=== PATIENT | female | born 1980 | race Caucasian/White ===

== ENCOUNTER 2020-01-03 11:54 | Emergency (ER) | payer SELFPAY ==
--- OUTSIDE RECORDS SUMMARY | 2020-01-03 11:57 | XMS REPORT | Summary of Care ---
:1980 Author Organization [facility] Address [address] [place] [address]- phone Encounter HQ Alesia(GORDO) [id number] Date(s): 11/07/19 - 11/07/19 [facility] [address], [place] [address]- [phone] Discharge Disposition: Home or Self Care Attending Physician: Ryan Bran MD Referring Physician: Ryan Bran MD Vital Signs Most recent to oldest [Reference Range]: 1 Height 157.48 cm (11/07/19 1:59 PM) Temperature Oral [96.4-99.1 DegF] 98.1 DegF (11/07/19 1:59 PM) Blood Pressure [90-140/60-90 mmHg] 121/73 mmHg (11/07/19 1:59 PM) Respiratory Rate [14-20 BRMIN] 16 BRMIN (11/07/19 1:59 PM) Peripheral Pulse Rate [60-100 bpm] 75 bpm (11/07/19 1:59 PM) Weight 110 kg (11/07/19 1:59 PM) Body Mass Index 44.35 m2 (11/07/19 1:59 PM) Problem List Condition Effective Dates Status Health Status Informant Renal cyst(Confirmed) Active Diabetes mellitus type II(Confirmed) Active HTN - Hypertension(Confirmed) Active Hyperlipidemia(Confirmed) Active Iron deficiency(Confirmed) Active Lumbar radiculopathy(Confirmed) Active Migraine(Confirmed) Active Paresthesia of right foot(Confirmed) Active Vertigo(Confirmed) Active Visual disturbance(Confirmed) Active Allergies, Adverse Reactions, Alerts No Known Medication Allergies Medications acetaminophen/butalbital/caffeine 300 mg-50 mg-40 mg oral capsule 1 cap, PO, Q4H, 0 Refill(s) Start Date: 11/07/19 Status: Orderedbaclofen 10 mg oral tablet 10 mg = 1 tab, PO, Bedtime, # 30 tab, 2 Refill(s), Pharmacy: [facility], 157.48, cm, 11/07/19 13:59:00 CDT, Height, 110, kg, 11/07/19 13:59:00 CDT, Weight Start Date: 11/07/19 Stop Date: 02/05/20 Status: Orderedfenofibrate 160 mg, PO, Daily, 0 Refill(s) Start Date: 11/07/19 Status: Orderedferrous sulfate 325 mg, PO, Daily, 0 Refill(s) Start Date: 11/07/19 Status: Orderedpropranolol 80 mg oral capsule, extended release 80 mg = 1 cap, PO, Daily, # 90 cap, 3 Refill(s), Pharmacy: [facility], 157.48, cm, 11/07/19 13:59:00 CDT, Height, 110, kg, 11/07/19 13:59:00 CDT, Weight Start Date: 11/07/19 Stop Date: 11/01/20 Status: Orderedrizatriptan 10 mg oral tablet 10 mg = 1 tab, PO, ONCE, PRN Headache, # 12 tab, 1 Refill(s), Pharmacy: [facility], 157.48, cm, 11/07/19 13:59:00 CDT, Height, 110, kg, 11/07/19 13:59:00 CDT, Weight Start Date: 11/07/19 Status: Orderedvenlafaxine 150 mg oral capsule, extended release 150 mg = 1 cap, PO, Daily, # 90 cap, 3 Refill(s), Pharmacy: [facility], 157.48, cm, 11/07/19 13:59:00 CDT, Height, 110, kg, 11/07/19 13:59:00 CDT, Weight Start Date: 11/07/19 Stop Date: 11/01/20 Status: Ordered Results No data available for this section Immunizations No data available for this section Procedures No data available for this section Social History Social History Type Response Smoking Status Never smoker; Exposure to To bacco Smoke Unable to obtain; Cigarette Smoking Last 365 Days Unable to obtain; Reg Smoking Cessation Counseling No entered on: 11/07/19 Assessment and Plan No data available for this section
--- OUTSIDE RECORDS SUMMARY | 2020-01-03 11:57 | XMS REPORT | Continuity of Care Document ---
:1980 Author Organization [facility] Care Team Providers Name Role Phone [facility] Unavailable Un available Problems Problem Status Onset Classification Date Comments Sourc e Date Reported Diabetes mellitus Active Problem 11/10/2019 [facility] type 2 (disorder) Ne uro Hypertensive Active Problem 11/10/2019 M[facility] r disorder, systemic N euro arterial (disorder) Lumbar Active Problem 11/10/2019 [facility] radiculopathy Neuro (disorder) Migraine Active Problem 11/10/2019 [facility] (disorder) Neuro Paresthesia of Active Problem 11/10/2019 Misc her foot (finding) Neuro Vertigo (finding) Active Problem 11/10/2019 [facility] Neuro Visual disturbance Active Problem 11/10/2019 [facility] (disorder) Neuro Cyst of kidney Active Problem 11/10/2019 Misc her (disorder) Neuro Hyperlipidemia Active Problem 11/10/2019 Misc her (disorder) Neuro Iron deficiency Active Problem 11/10/2019 Mis bryce (disorder) Neuro Medications Medication Details Route Status Patient Ordering Order Source Instructions Provider Date baclofen 10 mg 10 mg = 1 Active [facility] oral tablet tab, PO, 020 Neuro Bedtime, # 30 tab, 2 Refill(s), Pharmacy: [facility], 157.48, cm, 11/07/19 13:59:00 CDT, Height, 110, kg, 11/07/19 13:59:00 CDT, Weight propranolol 80 80 mg = 1 Active [facility]ischer mg oral capsule, cap, PO, 020 Neuro extended release Daily, # 90 cap, 3 Refill(s), Pharmacy: [facility], 157.48, cm, 11/07/19 13:59:00 CDT, Height, 110, kg, 11/07/19 13:59:00 CDT, Weight rizatriptan 10 10 mg = 1 Active [facility] mg oral tablet tab, PO, 020 Neuro ONCE, PRN Headache, # 12 tab, 1 Refill(s), Pharmacy: [facility], 157.48, cm, 11/07/19 13:59:00 CDT, Height, 110, kg, 11/07/19 13:59:00 CDT, Weight venlafaxine 150 150 mg = 1 Active Misch er mg oral capsule, cap, PO, 020 Neuro extended release Daily, # 90 cap, 3 Refill(s), Pharmacy: [facility], 157.48, cm, 11/07/19 13:59:00 CDT, Height, 110, kg, 11/07/19 13:59:00 CDT, Weight Fenofibrate 160 mg, PO, Active Mischer Daily, 0 020 Neuro Refill(s) ferrous sulfate 325 mg, PO, Active Misc her Daily, 0 020 Neuro Refill(s) Acetaminophen 1 cap, PO, Active Mischer 300 MG / Q4H, 0 020 Neuro butalbital 50 MG Refill(s) / Caffeine 40 MG Oral Capsule gabapentin 300 300 mg = 1 Active Mische r MG Oral Capsule cap, PO, 020 Neuro BID, # 60 cap, 3 Refill(s), Pharmacy: [facility] baclofen 10 mg 10 mg = 1 Active [facility]ischer oral tablet tab, PO, 020 Neuro Bedtime, # 30 tab, 2 Refill(s), Pharmacy: [facility] gabapentin 300 300 mg = 1 Active Mische r MG Oral Capsule cap, PO, 019 Neuro BID, # 60 cap, 3 Refill(s), Pharmacy: [facility] baclofen 10 mg 10 mg = 1 Active [facility] oral tablet tab, PO, 019 Neuro Bedtime, # 30 tab, 2 Refill(s), Pharmacy: [facility] 3 ML liraglutide 1.8 mg, Active [facility]ischer 6 MG/ML SUB-Q, 019 Neuro Prefilled Daily, # 9 Syringe mL, 1 [Victoza] Refill(s) 3 ML liraglutide SUB-Q, Inactive Mische r 6 MG/ML Daily, 0 019 Neuro Prefilled Refill(s) Syringe [Victoza] venlafaxine 150 150 mg = 1 Active Misch er mg oral capsule, cap, PO, 019 Neuro extended release Daily, # 90 cap, 3 Refill(s), Pharmacy: [facility] rizatriptan 10 10 mg = 1 Active [facility] mg oral tablet tab, PO, 019 Neuro ONCE, PRN Headache, # 12 tab, 1 Refill(s), Pharmacy: [facility] propranolol 80 80 mg = 1 Active [facility]ischer mg oral capsule, cap, PO, 019 Neuro extended release Daily, # 90 cap, 3 Refill(s), Pharmacy: [facility] baclofen 10 mg 10 mg = 1 Active Mischer oral tablet tab, PO, 019 Neuro Bedtime, # 30 tab, 2 Refill(s), Pharmacy: [facility] gabapentin 300 300 mg = 1 Active Mische r MG Oral Capsule cap, PO, 019 Neuro BID, # 60 cap, 3 Refill(s), Pharmacy: [facility] gabapentin 300 300 mg = 1 No Longer Misc her MG Oral Capsule cap, PO, Active 019 Neuro Bedtime, # 30 cap, 3 Refill(s), Pharmacy: [facility] Allergies, Adverse Reactions, Alerts Substance Category Reaction Severity Reaction Status Date Comments S ource type Reported No Known Assertion Drug Misch er Medication allergy Neuro Allergies Immunizations No Data Provided for This Section Results Order Name Results Value Reference Date Interpretation Comments Trinity rce Range ANEMIA Vitamin B12 Lvl 436 200 - 1100 10/12 Result Misch er STUDY /2018 Comment: Neuro FASTING:YE S
<br/ >FASTING: YES

Lab test performed by:
[facility] [[email or web address]] [facility]
[address]
[place] [address]
Naomi Kearns CHEM PANEL Alk Phos 100 33 - 115 10/12 Neuro CHEM PANEL Bili Total 0.3 0.2 - 1.2 10/12 Neuro CHEM PANEL ASPARTATE 13 10 - 30 10/12 Neuro CHEM PANEL ALANINE 19 6 - 29 10/12 [facility] E CHEM PANEL Glucose Lvl 135 65 - 99 10/12 Result Comment: Neuro
Fasting reference interval<b r/>
For someone without known diabetes, a glucose
value >125 mg/dL indicates that they may have
d iabetes and this should be confirmed with a
foll ow-up test.

Lab test performed by:
[facility]
[address]
[place] [address]
Naomi Kearns CHEM PANEL A/G Ratio 1.8 1.0 - 2.5 10/12 Neuro CHEM PANEL Globulin 2.8 1.9 - 3.7 10/12 Neuro CHEM PANEL Albumin Lvl 4.9 3.6 - 5.1 10/12 [facility] Neuro CHEM PANEL BUN 12 7 - 25 10/12 Neuro CHEM PANEL eGFR NON-AFR. 114 > OR = 60 10/12 [facility] [place]WAZ[place] mL/min/1. Neuro 3m2 CHEM PANEL Creatinine Lvl 0.60 0.50 - 10/12 [facility] 1. Neuro CHEM PANEL Chloride Lvl 101 98 - 110 10/12 Neuro CHEM PANEL Potassium Lvl 4.7 3.5 - 5.3 10/12 [facility] CHEM PANEL Total Protein 7.7 6.1 - 8.1 10[facility] Calcium Lvl 10.1 8.6 - 10.2 10/12 [facility] CO2 26 20 - 32 10/12 [facility] Neuro CHEM PANEL Sodium Lvl 136 135 - 146 10/12 [facility] Neuro CHEM PANEL B/C Ratio NOT 6 - 22 10/12cher APPLICABLE Neuro CHEM PANEL eGFR 132 > OR = 60 10/12 Mische r SWAZI mL/min/1. Neuro 3m2 HEMATOLOGY Basophils 0.8 10/12 Neuro HEMATOLOGY Neutrophils # 6036 1500 - 10/12 [facility] HEM[facility] Lymphocytes # 3420 850 - 3900 10/12 Misc her /2018 Neuro HEMATOLOGY Monocytes # 700 200 - 950 10/12 Neuro HEMATOLOGY Eosinophils # 62 15 - 500 10/12 [facility] Neuro HEMATOLOGY Basophils # 82 0 - 200 10/12 Neuro HEMATOLOGY Segs 58.6 10/12 Neuro HEMATOLOGY Monocytes 6.8 10/12cher Neuro HEMATOLOGY Eosinophils 0.6 10/12 Neuro HEMATOLOGY Lymphocytes 33.2 10/12 Neuro HEMATOLOGY WBC X 10x3 10.3 3.8 - 10.8 10/12 Result Comment: Neuro
Lab test performed by:
[facility]
[address]
[place] [address]
Naomi Kearns HEMATOLOGY RBC X 10x6 4.56 3.80 - 10/12 [facility] 5.10 Neuro HEMATOLOGY Hgb 10.8 11.7 - 10/12 [facility] 15.5 Neuro HEMATOLOGY Hct 34.0 35.0 - 10/12 [facility] 45.0 2019 Neuro HEMATOLOGY MCH 23.7 27.0 - 10/12 [facility] 33.0 Neuro HEMATOLOGY MCV 74.6 80.0 - 10/12 [facility] HEM[facility] RDW 15.4 11.0 - 10/12cher 15.0 Neuro HEMATOLOGY MCHC 31.8 32.0 - 10/12 [facility] 36.0 Neuro HEMATOLOGY MPV 10.6 7.5 - 12.5 10/12 Neuro HEMATOLOGY Platelet 453 140 - 400 10/12 Neuro HEMATOLOGY Sed Rate 25 < OR = 20 10/12 Result Mischer mm/hr Comment: Neuro
Lab test performed by:
[facility]
[address]
[place] [address]
Naomi Kearns Pathology Reports No Data Provided for This Section Diagnostic Reports No Data Provided for This Section Consultation Notes No Data Provided for This Section Discharge Summaries No Data Provided for This Section History and Physicals No Data Provided for This Section Vital Signs Vital Sign Value Date Comments Source Systolic (mm Hg) 121 11/07/2019 [facility] Benji ro Diastolic (mm Hg) 73 11/07/2019 [facility] Ne uro Heart Rate 75 11/07/2019 [facility] Neuro Respitory Rate 16 11/07/2019 [facility] Temperature Oral (F) 98.1 F 11/07/2019 [facility] Neuro Height 157.48 [facility]07[facility] 110 [facility]07[facility] BMI Calculated 44.35 11/07/2019 [facility] Neuro Systolic (mm Hg) 136 05/18/2019 [facility] Benji ro Diastolic (mm Hg) 75 05/18/2019 [facility] Heart Rate 84 [facility]18[facility] Respitory Rate 16 05/18[facility] Height 162.56 cm 05/18/[facility] Weight 110.455 05/18[facility] BMI Calculated 41.8 05/18/2019 [facility] Systolic (mm Hg) 125 03/07/2019 [facility] Benji ro Diastolic (mm Hg) 67 03/07/2019 [facility] Heart Rate 87 03/07/2019 [facility] Respitory Rate 16 03/07[facility] Height 157.48 cm 03/07/[facility] Weight 109.091 03/07/2019 [facility] BMI Calculated 43.99 03/07/2019 [facility] Height 157.48 cm 11/23/2018 [facility] BMI Calculated 45.45 11/23/2018 [facility] Weight 112.727 11/23/2018 [facility] Respitory Rate 16 11/23/2018 [facility] Heart Rate 88 11/23/2018 [facility] Systolic (mm Hg) 125 11/23/2018 [facility] Benji ro Diastolic (mm Hg) 83 11/23/2018 [facility] Height 157.48 cm 10/12/[facility] BMI Calculated 45.27 10/12/2018 [facility] Weight 112.273 10/12/[facility] Respitory Rate 16 10/12/2018 [facility] Heart Rate 78 10/12/2018 [facility] Systolic (mm Hg) 116 10/12/2018 [facility] Benji ro Diastolic (mm Hg) 81 10/12/2018 [facility] Ne uro Encounters Location Location Encounter Encounter Reason Attending ADM DC Stat us Source Details Type Number For Provider Date Date Visit Outpatient [id number] [facility] [id number] [facility]/29 [facility] [id number] [facility] 12/28 [facility] [id number] [facility]NIE 03/27 [facility] [place] [facility] [id number] Arnie 03/27 03/27 [facility] [place] Out[facility] [id number] ARNIE 07/13 [facility] [place] [facility] [id number] [facility]nie 10/12 [facility] [id number] Arnie 10/12 10/13 [facility] [place] [facility] [id number] Arnie 11/23 [facility] [id number] Arnie 11/23 11/24 [facility] [place] [facility] [id number] Arnie 02/14 [facility] [id number] Arnie 02/14 02/14 [facility] [place] [facility] [id number] Arnie 03/07 [facility] [id number] Arnie 03/07 03/08 [facility] [place] [facility] [id number] [facility]nie 05/18 [facility] [id number] Arnie 05/18 05/19 [facility] [place] [facility] [id number] Arnie 11/06 [facility] [place] [facility] [id number] Arnie 11/06 11/06 [facility] [place] [facility] Out[facility] [id number] Arnie 11/06 11/07 [facility] [place] [facility] [id number] Arnie 11/15 [facility] [place] [facility] [id number] [facility]nie 03/19 [facility] [place] Procedures No Data Provided for This Section Assessment and Plan No Data Provided for This Section Plan of Care No Data Provided for This Section Social History Social History Date Source Social History TypeResponse 11/07/2019 [facility] Smoking Status Never smoker; Exposure to Tobacco Smoke Unable to obtain; Cigarette Smoking Last 365 Days Unable to obtain; Reg Smoking Cessation Counseling No entered on: 11/07/19 Family History No Data Provided for This Section Advance Directives No Data Provided for This Section Functional Status No Data Provided for This Section
--- OUTSIDE RECORDS SUMMARY | 2020-01-03 11:57 | XMS REPORT | Summary of Care ---
:1980 Author Organization [facility] Address [address] [place] [address]- phone Encounter HQ Iman_colby(FIN) [id number] Date(s): 11/07/19 - 11/07/19 [facility] [address] [place] [address]- [phone] Attending Physician: Ryan Bran MD Referring Physician: Ryan Bran MD Vital Signs No data available for this section Problem List Condition Effective Dates Status Health Status Informant Renal cyst(Confirmed) Active Diabetes mellitus type II(Confirmed) Active HTN - Hypertension(Confirmed) Active Hyperlipidemia(Confirmed) Active Iron deficiency(Confirmed) Active Lumbar radiculopathy(Confirmed) Active Migraine(Confirmed) Active Paresthesia of right foot(Confirmed) Active Vertigo(Confirmed) Active Visual disturbance(Confirmed) Active Allergies, Adverse Reactions, Alerts No Known Medication Allergies Medications No data available for this section Results No data available for this section [...]
[2020-01-03 13:38] LABS: Urine Blood 2+ (NEG); Urine Glucose 2+ (NEG); Urine Protein NEGATIVE (NEG); Urine Specific Gravity >1.030 (1.005-1.030)
[2020-01-03] MEDS ORDERED: dexAMETHasone 10 MG/ML VIAL ONE (14:18)
[2020-01-03] MEDS ORDERED: NA CHLORIDE 0.9% 100 ML IV ONE (14:19)
[2020-01-03] MEDS ORDERED: METHOCARBAMOL 1,000 MG/10 ML VIAL IV ONE (14:19)
[2020-01-03] MEDS ORDERED: KETOROLAC 30 MG/ML INJ ONE (14:19)
--- NOTE | 2020-01-03 15:07 | EDPHYS ---
Physician Documentation [facility] Name: Sheela Ortega Age: 39 yrs Sex: Female : 1980 Arrival Date: 01/03/2020 Time: 12:00 Bed 18 Private MD: ED Physician Crow Frias HPI: 01/02 14:45 This 39 yrs old Female presents to ER via Ambulatory with complaints of back jr8 pain,Hip Pain, Abdominal Pain, Numbness - r leg. 14:45 The patient presents with pain that is acute. The symptoms are located in the low back. jr8 The pain radiates to the abdomen and right leg. The problem was sustained from unknown cause. Onset: The symptoms/episode began/occurred acutely, 2 day(s) ago. Modifying factors: The patient symptoms are alleviated by nothing, the patient symptoms are aggravated by any movement, walking. Associated signs and symptoms: The patient has no apparent associated signs or symptoms. Severity of symptoms: At their worst the symptoms were moderate, in the emergency department the symptoms are unchanged. It is unknown whether or not the patient has had similar symptoms in the past. The patient has not recently seen a physician. 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 - Social history:: Smoking status: Patient denies any tobacco usage or history of. ROS: 14:45 Eyes: Negative for injury, pain, redness, and discharge, ENT: Negative for injury, jr8 pain, and discharge, Neck: Negative for injury, pain, and swelling, Cardiovascular: Negative for chest pain, palpitations, and edema, Respiratory: Negative for shortness of breath, cough, wheezing, and pleuritic chest pain, Abdomen/GI: Negative for abdominal pain, nausea, vomiting, diarrhea, and constipation, MS/Extremity: Negative for injury and deformity, Skin: Negative for injury, rash, and discoloration, Neuro: Negative for headache, weakness, numbness, tingling, and seizure. 14:45 Back: Positive for pain at rest, pain with movement, radiated pain. Exam: 14:45 Eyes: Pupils equal round and reactive to light, extra-ocular motions intact. Lids and jr8 lashes normal. Conjunctiva and sclera are non-icteric and not injected. Cornea within normal limits. Periorbital areas with no swelling, redness, or edema. ENT: Nares patent. No nasal discharge, no septal abnormalities noted. Tympanic membranes are normal and external auditory canals are clear. Oropharynx with no redness, swelling, or masses, exudates, or evidence of obstruction, uvula midline. Mucous membranes moist. Neck: Trachea midline, no thyromegaly or masses palpated, and no cervical lymphadenopathy. Supple, full range of motion without nuchal rigidity, or vertebral point tenderness. No Meningismus. Cardiovascular: Regular rate and rhythm with a normal S1 and S2. No gallops, murmurs, or rubs. Normal PMI, no JVD. No pulse deficits. Respiratory: Lungs have equal breath sounds bilaterally, clear to auscultation and percussion. No rales, rhonchi or wheezes noted. No increased work of breathing, no retractions or nasal flaring. Abdomen/GI: Soft, non-tender, with normal bowel sounds. No distension or tympany. No guarding or rebound. No evidence of tenderness throughout. Skin: Warm, dry with normal turgor. Normal color with no rashes, no lesions, and no evidence of cellulitis. MS/ Extremity: Pulses equal, no cyanosis. Neurovascular intact. Full, normal range of motion. Neuro: Awake and alert, GCS 15, oriented to person, place, time, and situation. Cranial nerves II-XII grossly intact. Motor strength 5/5 in all extremities. Sensory grossly intact. Cerebellar exam normal. Normal gait. 14:45 Back: pain, that is moderate, of the low back area, ROM is painful, normal spinal alignment noted, CVA tenderness, is absent, vertebral tenderness, is not appreciated. Vital Signs: 12:31 BP 121 / 70; Pulse 76; Resp 16; Temp 98.2; Pulse Ox 97% ; Weight 109.32 kg; Height 5 sv ft. 2 in. (157.48 cm); 13:55 BP 130 / 81; Pulse 81; Resp 15 S; Pulse Ox 99% on R/A; ca1 14:45 BP 116 / 57; Pulse 79; Resp 15 S; Pulse Ox 99% on R/A; ca1 15:40 BP 114 / 52; Pulse 73; Resp 16 S; Pulse Ox 99% on R/A; ca1 12:31 Body Mass Index 44.08 (109.32 kg, 157.48 cm) sv MDM: 13:27 Patient medically screened. jr8 15:05 Data reviewed: vital signs, nurses notes, lab test result(s), and as a result, I will jr8 discharge patient. Data interpreted: Pulse oximetry: on room air is 99 %. Interpretation: normal. Counseling: I had a detailed discussion with the patient and/or guardian regarding: the historical points, exam findings, and any diagnostic results supporting the discharge/admit diagnosis, lab results, radiology results, the need for outpatient follow up, a family practitioner, to return to the emergency department if symptoms worsen or persist or if there are any questions or concerns that arise at home. ED course: Patient feeling better. Will continue medicine at home. To come back if worse. Also counseled her on glucose level and glucosuria present . 01/02 13:19 Order name: Urine Dipstick--Ancillary (enter results); Complete Time: 14:35 em1 01/02 13:19 Order name: Urine --Ancillary (enter results); Complete Time: 14:35 1 01/02 14:58 Order name: Glucose, Ancillary Testing; Complete Time: 15:01 EDMS 01/02 13:36 Order name: IV; Complete Time: 14:20 jr8 01/02 14:35 Order name: Glucose Level; Complete Time: 14:48 [id number] Administered Medications: 14:11 Drug: TORadol - Ketorolac 15 mg Route: IVP; Site: right hand; ca1 14:49 Follow up: Response: No adverse reaction; Pain is decreased ca1 14:13 Drug: Decadron - Dexamethasone 10 mg Route: IVP; Site: right hand; ca1 14:49 Follow up: Response: No adverse reaction; Pain is decreased ca1 14:15 Drug: Robaxin 1 grams Route: IVPB; Infused Over: 1 hrs; Site: right hand; ca1 15:20 Follow up: Response: No adverse reaction; Marked relief of symptoms; Pain is decreased; ca1 IV Status: Completed infusion Disposition: 18:38 Co-signature as Attending Physician, Crow Frias MD. rn Disposition: 01/03/20 15:07 Discharged to Home. Impression: Low back pain, Radiculopathy, lumbar region. - Condition is Stable. - Discharge Instructions: Back Pain, Adult, Musculoskeletal Pain, Heat Therapy. - Prescriptions for meloxicam 15 mg Oral tablet - take 1 tablet by ORAL route once daily As needed; 20 tablet. Robaxin 500 mg Oral Tablet - take 2 tablet by ORAL route every 6 hours As needed; 40 tablet. - Medication Reconciliation Form, Thank You Letter, Antibiotic Education, Prescription Opioid Use form. - Follow up: Private Physician; When: 5 - 6 days; Reason: Recheck today's complaints, Continuance of care, Re-evaluation by your physician. - Problem is new. - Symptoms have improved. Signatures: Dispatcher [employer] Jennifer Jo, RN RN Crow Cabral MD MD rn Roszak, Josh, PA PA jr8 Bria Ibrahim RN RN ca1 Corrections: (The following items were deleted from the chart) 15:42 15:07 01/03/2020 15:07 Discharged to Home. Impression: Low back pain; Radiculopathy, ca1 lumbar region. Condition is Stable. Forms are Medication Reconciliation Form, Thank You Letter, Antibiotic Education, Prescription Opioid Use. Follow up: Private Physician; When: 5 - 6 days; Reason: Recheck today's complaints, Continuance of care, Re-evaluation by your physician. Problem is new. Symptoms have improved. jr8
--- NOTE | 2020-01-03 15:07 | ER ---
Nurse's Notes [facility] Name: Sheela Ortega Age: 39 yrs Sex: Female : 1980 Arrival Date: 01/03/2020 Time: 12:00 Bed 18 Private MD: Diagnosis: Low back pain;Radiculopathy, lumbar region Presentation: 01/02 12:29 Chief complaint: Patient states: right low back pain with radiation down the right leg sv started a month ago. No OTC meds taken today. Coronavirus screen: Client denies travel out of the [place] in the last 14 days. At this time, the client does not indicate any symptoms associated with coronavirus-19. Ebola Screen: No symptoms or risks identified at this time. Initial Sepsis Screen:. Risk Assessment: Do you want to hurt yourself or someone else? Patient reports no desire to harm self or others. Onset of symptoms was November 2019. 12:29 Method Of Arrival: Ambulatory sv 12:29 Acuity: TASNEEM 4 sv 12:31 Initial Sepsis Screen: Does the patient meet any 2 criteria? No. Patient's initial sv sepsis screen is negative. Does the patient have a suspected source of infection? No. Patient's initial sepsis screen is negative. 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 - Social history:: Smoking status: Patient denies any tobacco usage or history of. Screenin:54 Abuse screen: Denies threats or abuse. Denies injuries from another. Nutritional ca1 screening: No deficits noted. Tuberculosis screening: No symptoms or risk factors identified. Fall Risk None identified. Assessment: 12:54 General: Appears in no apparent distress. comfortable, Behavior is calm, cooperative, ca1 appropriate for age. Pain: Complains of pain in right low back Pain radiates to suprapubic area and right lower quadrant, R upper anterior thight, R groin Pain currently is 3 out of 10 on a pain scale. Pain began a month Is intermittent, Aggravated by repositioning. Neuro: Level of Consciousness is awake, alert, obeys commands, Oriented to person, place, time, situation. GI: Abdomen is round non-distended, Bowel sounds present X 4 quads. Abd is soft and non tender X 4 quads. : No signs and/or symptoms were reported regarding the genitourinary system. Urine is cloudy. EENT: No signs and/or symptoms were reported regarding the EENT system. Derm: Skin is intact, is healthy with good turgor, Skin is pink, warm \T\ dry. Musculoskeletal: Circulation, motion, and sensation intact. Capillary refill < 3 seconds. 13:55 Reassessment: Patient appears in no apparent distress at this time. Patient and/or ca1 family updated on plan of care and expected duration. Pain level reassessed. Patient is alert, oriented x 3, equal unlabored respirations, skin warm/dry/pink. 14:21 Reassessment: Patient appears in no apparent distress at this time. Patient is alert, ca1 oriented x 3, equal unlabored respirations, skin warm/dry/pink. 15:30 Reassessment: Patient appears in no apparent distress at this time. Patient and/or ca1 family updated on plan of care and expected duration. Pain level reassessed. Patient is alert, oriented x 3, equal unlabored respirations, skin warm/dry/pink. Vital Signs: 12:31 BP 121 / 70; Pulse 76; Resp 16; Temp 98.2; Pulse Ox 97% ; Weight 109.32 kg; Height 5 sv ft. 2 in. (157.48 cm); 13:55 BP 130 / 81; Pulse 81; Resp 15 S; Pulse Ox 99% on R/A; ca1 14:45 BP 116 / 57; Pulse 79; Resp 15 S; Pulse Ox 99% on R/A; ca1 15:40 BP 114 / 52; Pulse 73; Resp 16 S; Pulse Ox 99% on R/A; ca1 12:31 Body Mass Index 44.08 (109.32 kg, 157.48 cm) sv ED Course: 12:00 Patient arrived in ED. as 12:29 Arm band placed on. sv 12:30 Triage completed. sv 12:37 Bria Ibrahim, RN is Primary Nurse. ca1 12:54 Patient has correct armband on for positive identification. Bed in low position. Call ca1 light in reach. Side rails up X 1. Pulse ox on. NIBP on. 12:54 No provider procedures requiring assistance completed. ca1 12:55 [facility] jr8 12:55 Crow Frias MD is Attending Physician. jr8 14:10 Inserted saline lock: 20 gauge in right hand, using aseptic technique. dh4 15:42 IV discontinued, intact, bleeding controlled, No redness/swelling at site. Pressure ca1 dressing applied. Administered Medications: 14:11 Drug: TORadol - Ketorolac 15 mg Route: IVP; Site: right hand; ca1 14:49 Follow up: Response: No adverse reaction; Pain is decreased ca1 14:13 Drug: Decadron - Dexamethasone 10 mg Route: IVP; Site: right hand; ca1 14:49 Follow up: Response: No adverse reaction; Pain is decreased ca1 14:15 Drug: Robaxin 1 grams Route: IVPB; Infused Over: 1 hrs; Site: right hand; ca1 15:20 Follow up: Response: No adverse reaction; Marked relief of symptoms; Pain is decreased; ca1 IV Status: Completed infusion Outcome: 15:07 Discharge ordered by . jr8 15:42 Discharged to home ambulatory. ca1 15:42 Condition: stable 15:42 Discharge instructions given to patient, Instructed on discharge instructions, follow up and referral plans. medication usage, Demonstrated understanding of instructions, follow-up care, medications, Prescriptions given X 2. 15:42 Patient left the ED. ca1 Signatures: Jennifer Mora RN RN sv Martinez, Amelia as Chad Coronado PA PA [facility] Bria Ibrahim RN RN ca1 Huhn, Donald [facility]
== END 2020-01-03 15:42 | disposition home or self-care (01) ==
LOC: ER 11:54
DX: M54.16 Radiculopathy, lumbar region (principal); I10 Essential (primary) hypertension; Z88.8 Allergy status to other drugs, medicaments and biological substances
CPT/HCPCS: 81003; 81025; 82947; 96365; 96375; 99284; J1100; J2800

== ENCOUNTER 2022-05-20 20:28 | Emergency (ER) | payer OTHER, SELFPAY ==
[2022-05-20 21:58] LABS: Urine Blood 3+ (Negative); Urine Glucose 2+ (Negative); Urine Protein Trace (Negative)
[2022-05-20 21:59] LABS: Absolute Lymphocytes (CBC) 3.3 K/uL (0.7-4.9); Hematocrit 37.6 % (36.0-45.0); Lymphocytes % 32.4 % (15.3-44.8); MPV 8.2 fL (7.6-11.3)
[2022-05-20] MEDS ORDERED: MORPHINE 4 MG/ML SYR ONE (22:07)
[2022-05-20] MEDS ORDERED: ONDANSETRON 4 MG/2 ML VIAL ONE (22:07)
[2022-05-20] MEDS ORDERED: NA CHLORIDE 0.9% 1,000 ML ONE (22:07)
[2022-05-20 22:10] LABS: Urine Bacteria None Seen /HPF (<20); Urine Mucus Slight /HPF (None Seen); Urine RBC >50 /HPF (None Seen)
[2022-05-20 22:16] LABS: Albumin 4.2 g/dL (3.4-5.0); Bilirubin Total 0.3 mg/dL (0.2-1.0); Potassium 3.6 mmol/L (3.5-5.1); Protein, Total 8.1 g/dL (6.4-8.2)
--- NOTE | 2022-05-20 22:43 | RAD REPORT ---
EXAM DESCRIPTION: CTAbdomen Pelvis W Contrast - 05/20/2022 10:30 pm CLINICAL HISTORY: R flank and RLQ abdominal pain COMPARISON: No comparisons TECHNIQUE: CT of the abdomen and pelvis was performed. All CT scans are performed using dose optimization technique as appropriate and may include automated exposure control or mA/KV adjustment according to patient size. FINDINGS: Lower chest: No acute abnormality. Liver: I steatosis Biliary: No biliary ductal dilatation. Stomach: No significant focal abnormality. Duodenum: No significant focal abnormality. Pancreas: No significant abnormality. Spleen: No significant abnormality. Adrenal: No suspicious lesions. Kidney/ureter: No hydronephrosis. No renal calculi. Too small to characterize and/or benign appearing renal lesions are noted. Retroperitoneum: No retroperitoneal adenopathy. Vascular: No aneurysm. Bowel: No significant focal abnormality. Normal appendix. Peritoneum: No ascites or free air. Small fat containing umbilical hernia. Bladder: Grossly unremarkable. Reproductive: No adnexal masses. Bones: No acute fracture. Other: n/a IMPRESSION: No acute intra-abdominal or pelvic finding. Normal appendix. No urinary tract calculi.
[2022-05-20] MEDS ORDERED: KETOROLAC 30 MG/ML INJ ONE (23:11)
[2022-05-20] MEDS ORDERED: LIDOCAINE 4% PATCH ONE (23:29)
[2022-05-20] MEDS ORDERED: methocarbamoL 500 MG TAB ONE (23:29)
--- NOTE | 2022-05-20 23:38 | EDPHYS ---
Physician Documentation [facility] Name: Sheela Ortega Age: 41 yrs Sex: Female : 1980 Arrival Date: 05/20/2022 Time: 21:00 Bed 19 Private MD: ED Physician Jennifer Cheng HPI: 05/20 23:29 This 41 yrs old Female presents to ER via Ambulatory with complaints of Abdominal Pain. sd2 23:29 41-year-old female presents with chief complaint of right lower back pain. She reports sd2 she felt some "twinges" throughout the day today but it acutely worsened this evening and the right side of her lower back and radiated around into the right lower abdomen. She denies any fevers, vomiting, diarrhea, chest pain, shortness of breath. 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 - Social history:: Smoking status: Patient denies any tobacco usage or history of. ROS: 23:29 Constitutional: Negative for fever, chills, and weight loss, Eyes: Negative for injury, sd2 pain, redness, and discharge, Cardiovascular: Negative for chest pain, palpitations, and edema, Respiratory: Negative for shortness of breath, cough, wheezing. 23:29 Abdomen/GI: Positive for abdominal pain, Negative for nausea, vomiting, and diarrhea. 23:29 Back: Positive for pain with movement, Negative for injury or acute deformity, decreased range of motion. Exam: 23:29 Constitutional: This is a well developed, well nourished patient who is awake, alert, sd2 and in no acute distress. Head/Face: Normocephalic, atraumatic. Eyes: EOMI, normal conjunctiva bilaterally Chest/axilla: Normal chest wall appearance and motion. Nontender with no deformity. Cardiovascular: Regular rate and rhythm with a normal S1 and S2. No gallops, murmurs, or rubs. 2+ distal pulses. Respiratory: Lungs have equal breath sounds bilaterally, clear to auscultation and percussion. No rales, rhonchi or wheezes noted. No increased work of breathing, no retractions or nasal flaring. Abdomen/GI: Soft, non-tender, with normal bowel sounds. No guarding or rebound. No evidence of tenderness throughout. Back: No spinal tenderness. No costovertebral tenderness. Full range of motion. Skin: Warm, dry with normal turgor. Normal color with no rashes, no lesions, and no evidence of cellulitis. MS/ Extremity: Pulses equal, no cyanosis. Neurovascular intact. Full, normal range of motion. Ambulatory without difficulty. Psych: Awake, alert, with orientation to person, place and time. Behavior, mood, and affect are within normal limits. Vital Signs: 21:16 BP 146 / 80; Pulse 78; Resp 16; Temp 99.1(TE); Pulse Ox 100% on R/A; Weight 108.86 kg jb4 (R); Height 5 ft. 2 in. (157.48 cm); Pain 8/10; 22:15 BP 110 / 70; Pulse 77; Resp 16; Pulse Ox 97% on R/A; jb4 23:45 BP 125 / 77; Pulse 73; Resp 16; Pulse Ox 97% on R/A; jb4 21:16 Body Mass Index 43.90 (108.86 kg, 157.48 cm) jb4 MDM: 21:04 Patient medically screened. sd2 23:29 Differential Diagnosis Gastritis, cholecystitis, pancreatitis, SBO, diverticulitis, sd2 kidney stone, appendicitis, UTI, dehydration, electrolyte abnormality among others. Data reviewed: vital signs, nurses notes. I considered the following discharge prescriptions or medication management in the emergency department Medications were administered in the Emergency Department. See MAR. Independent interpretation of the following test(s) in the Emergency Department. Historians other than the Patient: Spouse/Significant Other: . Care significantly affected by the following chronic conditions: Diabetes, Hypertension, PCOS. 23:29 Counseling: I had a detailed discussion with the patient and/or guardian regarding: the sd2 historical points, exam findings, and any diagnostic results supporting the discharge/admit diagnosis, lab results, radiology results, the need for outpatient follow up, to return to the emergency department if symptoms worsen or persist or if there are any questions or concerns that arise at home. ED course: Labs and imaging reviewed. Labs are grossly within normal clinical limits. Urine without evidence of infection at this time. CTAP with no acute abnormality. Upon repeat exam, pain is worse with certain movements. Concern for MSK etiology at this time. Patient has been advised of discharge plan and strict return precautions and verbalized understanding of strict return precautions.. 05/20 21:21 Order name: CBC with Diff; Complete Time: 22:17 sd2 05/20 21:21 Order name: CMP; Complete Time: 22:17 sd2 05/20 21:21 Order name: Lipase; Complete Time: 22:17 sd2 05/20 21:21 Order name: Urine Microscopic Only; Complete Time: 22:17 sd2 05/20 21:58 Order name: Urine Dipstick-Ancillary; Complete Time: 22:17 EDMS 05/20 21:59 Order name: Urine --Ancillary (enter results); Complete Time: 22:17 wm 05/20 21:21 Order name: CT Abd/Pelvis - IV Contrast Only; Complete Time: 22:47 sd2 05/20 21:21 Order name: IV Saline Lock; Complete Time: 22:03 sd2 05/20 21:21 Order name: Labs collected and sent; Complete Time: 22:03 sd2 05/20 21:21 Order name: Urine Dipstick-Ancillary (obtain specimen); Complete Time: 22:03 sd2 05/20 21:21 Order name: Urine Test (obtain specimen); Complete Time: 22:03 sd2 Administered Medications: 23:58 Discontinued: NS 0.9% 1000 ml IV at 1 bolus Per protocol; 1000 mL bolus jb4 22:14 Drug: NS 0.9% 1000 ml Route: IV; Rate: 1 bolus; Site: right antecubital; jb4 23:00 Follow up: IV Status: Order to discontinue infusion jb4 22:14 Drug: Zofran (Ondansetron) 4 mg Route: IVP; Site: right antecubital; jb4 22:45 Follow up: Response: No adverse reaction; Marked relief of symptoms jb4 22:14 Drug: morphine 4 mg Route: IVP; Infused Over: 4 mins; Site: right antecubital; jb4 22:45 Follow up: Response: Adverse reaction, Physician notified; Pain is decreased jb4 23:15 Drug: Ketorolac 60 mg Route: IM; Site: right gluteus; jb4 23:58 Follow up: Response: No adverse reaction; Marked relief of symptoms jb4 23:34 Drug: Methocarbamol 1000 mg Route: PO; jb4 23:58 Follow up: Response: No adverse reaction; Marked relief of symptoms jb4 23:34 Drug: Lidoderm Patch 5 % (700 mg/patch) 1 patches Route: Topical; Site: affected area; jb4 Disposition Summary: 05/20/22 23:37 Discharge Ordered Location: Home sd2 Problem: new sd2 Symptoms: have improved sd2 Condition: Stable sd2 Diagnosis - Right low back pain sd2 - Right lower quadrant abdominal pain sd2 Followup: sd2 - With: Private Physician - When: 2 - 3 days - Reason: Recheck today's complaints, Continuance of care, Re-evaluation by your physician Discharge Instructions: - Discharge Summary Sheet sd2 - Abdominal Pain, Adult sd2 - Acute Back Pain, Adult sd2 Forms: - Medication Reconciliation Form sd2 - Thank You Letter sd2 - Antibiotic Education sd2 - Prescription Opioid Use sd2 Prescriptions: - Anaprox DS 550 mg Oral Tablet - take 1 tablet by ORAL route every 12 hours As needed; 20 tablet; Refills: 0, sd2 Product Selection Permitted - methocarbamol 750 mg Oral Tablet - take 1 tablet by ORAL route every 8 hours As needed; 15 tablet; Refills: 0, sd2 Product Selection Permitted Signatures: Dispatcher [employer] Johnie Gan, RN RN jb4 Jennifer Cheng MD MD sd2
--- NOTE | 2022-05-20 23:38 | ER ---
Nurse's Notes [facility] Name: Sheela Ortega Age: 41 yrs Sex: Female : 1980 Arrival Date: 05/20/2022 Time: 21:00 Bed 19 Private MD: Diagnosis: Right low back pain;Right lower quadrant abdominal pain Presentation: 05/20 21:16 Chief complaint: Patient states: I started having twinges in my lower back throughout jb4 the day. Around 8pm I had a sudden pain in my right lower abdomen that radiates to my right lower back. Coronavirus screen: At this time, the client does not indicate any symptoms associated with coronavirus-19. Ebola Screen: No symptoms or risks identified at this time. Initial Sepsis Screen: Does the patient meet any 2 criteria? No. Patient's initial sepsis screen is negative. Does the patient have a suspected source of infection? No. Patient's initial sepsis screen is negative. Risk Assessment: Do you want to hurt yourself or someone else? Patient reports no desire to harm self or others. Onset of symptoms was May 20, 2022. Transition of care: patient was not received from another setting of care. 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 - Social history:: Smoking status: Patient denies any tobacco usage or history of. Screenin:19 [facility] ED Fall Risk Assessment (Adult) History of falling in the last 3 months, jb4 including since admission No falls in past 3 months (0 pts) Confusion or Disorientation No (0 pts) Intoxicated or Sedated No (0 pts) Impaired Gait No (0 pts) Mobility Assist Device Used No (0 pt) Altered Elimination No (0 pt) Score/Fall Risk Level 0 - 2 = Low Risk. Abuse screen: Denies threats or abuse. Nutritional screening: No deficits noted. Tuberculosis screening: No symptoms or risk factors identified. Assessment: 21:19 General: Appears in no apparent distress. uncomfortable, Behavior is calm, cooperative, jb4 appropriate for age. Pain: Complains of pain in right lower quadrant Pain does not radiate. Pain currently is 8 out of 10 on a pain scale. Quality of pain is described as shooting, Pain began suddenly, Is intermittent. Neuro: Level of Consciousness is awake, alert, obeys commands, Oriented to person, place, time, situation. Cardiovascular: Patient's skin is warm and dry. Respiratory: Airway is patent Respiratory effort is even, unlabored, Respiratory pattern is regular, symmetrical. GI: Abdomen is round non-distended, obese, Reports lower abdominal pain. : Reports pain in right flank(s), in lower back. EENT: No signs and/or symptoms were reported regarding the EENT system. Derm: Skin is intact, Skin is pink, warm \T\ dry. Musculoskeletal: Circulation, motion, and sensation intact. Range of motion: intact in all extremities. 22:00 Reassessment: Patient appears in no apparent distress at this time. Patient and/or jb4 family updated on plan of care and expected duration. Pain level reassessed. Patient is alert, oriented x 3, equal unlabored respirations, skin warm/dry/pink. 23:01 Reassessment: Patient appears in no apparent distress at this time. Patient and/or jb4 family updated on plan of care and expected duration. Pain level reassessed. Patient is alert, oriented x 3, equal unlabored respirations, skin warm/dry/pink. 23:55 Reassessment: Patient appears in no apparent distress at this time. Patient and/or jb4 family updated on plan of care and expected duration. Pain level reassessed. Patient is alert, oriented x 3, equal unlabored respirations, skin warm/dry/pink. Vital Signs: 21:16 BP 146 / 80; Pulse 78; Resp 16; Temp 99.1(TE); Pulse Ox 100% on R/A; Weight 108.86 kg jb4 (R); Height 5 ft. 2 in. (157.48 cm); Pain 8/10; 22:15 BP 110 / 70; Pulse 77; Resp 16; Pulse Ox 97% on R/A; jb4 23:45 BP 125 / 77; Pulse 73; Resp 16; Pulse Ox 97% on R/A; jb4 21:16 Body Mass Index 43.90 (108.86 kg, 157.48 cm) jb4 ED Course: 21:00 Patient arrived in ED. es 21:04 Jennifer Cheng MD is Attending Physician. sd2 21:16 Johnie Maldonado, STEPHANE is Primary Nurse. jb4 21:18 Triage completed. jb4 21:18 Arm band placed on right wrist. jb4 21:19 Patient has correct armband on for positive identification. Placed in gown. Bed in low jb4 position. Call light in reach. Side rails up X 1. Client placed on continuous cardiac and pulse oximetry monitoring. NIBP monitoring applied. 21:38 Initial lab(s) drawn, by me, sent to lab. Inserted saline lock: 20 gauge in right jb4 antecubital area, using aseptic technique. Blood collected. 22:03 CMP Sent. jb4 22:03 Lipase Sent. jb4 22:03 Urine Microscopic Only Sent. jb4 22:32 CT Abd/Pelvis - IV Contrast Only In Process Unspecified. EDMS 23:45 No provider procedures requiring assistance completed. IV discontinued, intact, jb4 bleeding controlled, No redness/swelling at site. Pressure dressing applied. Administered Medications: 23:58 Discontinued: NS 0.9% 1000 ml IV at 1 bolus Per protocol; 1000 mL bolus jb4 22:14 Drug: NS 0.9% 1000 ml Route: IV; Rate: 1 bolus; Site: right antecubital; jb4 23:00 Follow up: IV Status: Order to discontinue infusion jb4 22:14 Drug: Zofran (Ondansetron) 4 mg Route: IVP; Site: right antecubital; jb4 22:45 Follow up: Response: No adverse reaction; Marked relief of symptoms jb4 22:14 Drug: morphine 4 mg Route: IVP; Infused Over: 4 mins; Site: right antecubital; jb4 22:45 Follow up: Response: Adverse reaction, Physician notified; Pain is decreased jb4 23:15 Drug: Ketorolac 60 mg Route: IM; Site: right gluteus; jb4 23:58 Follow up: Response: No adverse reaction; Marked relief of symptoms jb4 23:34 Drug: Methocarbamol 1000 mg Route: PO; jb4 23:58 Follow up: Response: No adverse reaction; Marked relief of symptoms jb4 23:34 Drug: Lidoderm Patch 5 % (700 mg/patch) 1 patches Route: Topical; Site: affected area; jb4 Medication: 21:19 VIS not applicable for this client. jb4 Outcome: 23:37 Discharge ordered by . sd2 23:45 Discharged to home ambulatory. jb4 23:45 Condition: stable 23:45 Discharge instructions given to patient, Instructed on discharge instructions, follow up and referral plans. medication usage, Demonstrated understanding of instructions, follow-up care, medications, Prescriptions given X 2. 05/21 00:01 Patient left the ED. jb4 Signatures: Dispatcher [employer] Ladonna Samayoa James, RN RN jb4 Jennifer Cheng MD MD sd2
[2022-05-21 00:11] VITALS: TEMP 99.1
[2022-05-21 00:12] VITALS: O2SAT 97
[2022-05-21 00:13] VITALS: BP 125/77
== END 2022-05-21 00:01 | disposition home or self-care (01) ==
LOC: ER 20:28
DX: R10.31 Right lower quadrant pain (principal); M54.50 Low back pain, unspecified; E11.9 Type 2 diabetes mellitus without complications; I10 Essential (primary) hypertension; Z88.8 Allergy status to other drugs, medicaments and biological substances
CPT/HCPCS: 96361; 85025; 36415; 81025; 83690; 80053; 74177; 96375; 96372; 96374; 99284; Q9967; J2001; J7030; J2405; 81003; 81015